=== PATIENT | male | born 1945 | race Caucasian/White ===

== ENCOUNTER 2017-08-02 07:26 | Inpatient (IN) | payer MEDICARE, OTHER ==
[~2017-08-02] VITALS: Ht 172.7 cm; Wt 69.3 kg
[2017-08-02] MEDS ORDERED: SAW450CA2 PO (08:01)
[2017-08-02] MEDS ORDERED: rhodiola PO (08:01)
[2017-08-02] MEDS ORDERED: ASPI1TAB57 PO (08:01)
[2017-08-02] MEDS ORDERED: METO25TA3 PO (08:01)
[2017-08-02] MEDS ORDERED: VITA500T83 PO (08:01)
[2017-08-02] MEDS ORDERED: ERGO2000 PO (08:01)
[2017-08-02] MEDS ORDERED: VITATAB11 PO (08:01)
[2017-08-02] MEDS ORDERED: CHOLTAB5 PO (08:01)
[2017-08-02] MEDS ORDERED: CELE200C PO (08:01)
[2017-08-02] MEDS ORDERED: CRANCAP2 PO (08:01)
[2017-08-02] MEDS ORDERED: RED1CAP4 PO (08:01)
[2017-08-02] MEDS ORDERED: GARL100T PO (08:01)
[2017-08-02] MEDS ORDERED: HYDR-3516 PO (08:01)
[2017-08-02] MEDS ORDERED: ceFAZolin 2 GM PREMIX 50 ML IV SCH (08:15)
[2017-08-02] MEDS ORDERED: SODIUM CHLORID 0.9% 500 ML IV PRN (08:15)
[2017-08-02] MEDS ORDERED: VANCOMYCIN 1000 MG/NS 250 ML (for <70 kg) IV SCH ×2 (08:15)
[2017-08-02] MEDS ORDERED: CHLORHEXIDINE GLUCONATE 2 % 1 PACK (2 CLOTHS) TOPICAL PRN (08:15)
[2017-08-02] MEDS ORDERED: LACTATED RINGER'S 1000 ML IV PRN (08:15)
[2017-08-02] MEDS ORDERED: METOPROLOL TARTRATE 25 MG TAB PO PRN (08:15)
[2017-08-02] MEDS ORDERED: POVIDONE IODINE 7.5% SCRUB 118 ML BOTTLE TOPICAL SCH (08:15)
[2017-08-02] MEDS ORDERED: POVIDONE IODINE 5% (ANTISEPSIS KIT) 4 APPLICATIONS EACH NARE PRN (08:15)
[2017-08-02] MEDS ORDERED: GENTAMICIN SULFATE 80 MG/2 ML VIAL ONE (08:39)
[2017-08-02] MEDS ORDERED: TRANEXAMIC ACID IV SCH (10:00)
[2017-08-02] MEDS ORDERED: EXPAREL PERI-ARTICULAR INJECTION (TOTAL VOL. 60 ML) P-ARTICULR SCH ×2 (10:00)
[2017-08-02] MEDS ORDERED: SODIUM CHLORIDE 0.9% IV SCH (10:00)
--- NOTE | 2017-08-02 11:12 | PD.OP ---
cc: Wilfrid Flores MD Operative Report Date of Surgery: Aug 02, 2017 Preoperative Diagnosis: Impending pathologic fracture left proximal femur/hip. 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 Surgeon: Wilfrid Flores Quality Systems Manager(s): BEBETO Garza Operation and Findings: EBL: 150 cc INDICATION: Patient is a 71-year-old white male with progressive left hip pain. Initially x-rays were relatively unremarkable but an MRI scan showed evidence of an aggressive posterior peritrochanteric lesion with some evidence of destabilization of the proximal femur. A PET CT scan is consistent with diffuse metastatic disease. The primary at this time is unknown but is in the workup for reevaluation. He's having a prophylactic intramedullary linda to prevent a pathologic fracture of the left femur NOTE: Tegan Garza PA-C was present for the entire surgical procedure as my surgeon assistant. In my medical opinion her skill and care was necessary for proper management of this patient PROCEDURE: The patient was brought to the operating room and anesthetized in the supine position. He was placed on the fracture table with the left leg held extended. The opposite leg was in the well leg desai. The hip and leg was held anatomically. The hip and leg was scrubbed with alcohol followed by Hibiclens followed by ChloraPrep. A timeout was done and antibiotics were given within 1 hour time window. A longitudinal incision was made over the lateral aspect of the proximal femur. Dissection continued down to the top of the greater trochanter. A cannulated awl was placed down through the top of the greater trochanter followed by placement of the guidepin along the shaft of the femur. This was reamed distally to 1 mm greater than the linda size and proximally to 16 mm. A separate incision was made laterally followed by placement of guidepin to the proper position of the femoral head. This is reamed and tapped in the proper length was placed up into the proper location. A single transverse screw was placed distally through the linda. Intraoperative x-rays were obtained. Alignment was satisfactory. No complication was noted. The wound was irrigated copiously. Hemostasis was controlled. The fascia was closed with interrupted Vicryl suture, subcutaneous tissue 2-0 Vicryl suture, skin with running intradermal 3-0 Vicryl followed by Steri-Strips and benzoin. A sterile dressing was applied The patient was awakened and taken to the recovery room in satisfactory condition. COMPANY: [employer]. Extended trochanteric nail, 400 mm, 11 mm, 125 proximal FINDINGS: There was no evidence of a fracture preoperatively or postoperatively. The stabilization was felt to be very good. Reamings were sent for analysis to pathology for further direction. There was no complication was appreciated. Wilfrid Flores MD Aug 02, 2017 11:12
[2017-08-02] MEDS ORDERED: ACETAMINOPHEN/HYDROcodone 325 MG/7.5 MG TAB PO PRN (11:15)
[2017-08-02] MEDS ORDERED: MISCELLANEOUS PHARMACY INFORMATION XX ONE (11:15)
[2017-08-02] MEDS ORDERED: MISCELLANEOUS NURSING INFORMATION XX PRN (11:15)
[2017-08-02] MEDS ORDERED: Post-op Orders (for Pharmacy) MISC XX ONE (11:15)
[2017-08-02] MEDS ORDERED: ONDANSETRON HCL 4 MG/2 ML VIAL IVP PRN (11:15)
[2017-08-02] MEDS ORDERED: MORPHINE SULFATE 8 MG/ML INJ IM PRN (11:15)
[2017-08-02] MEDS ORDERED: TEMAZEPAM 15 MG CAP PO PRN (11:15)
[2017-08-02] MEDS ORDERED: ALUMINUM/MAGNESIUM/SIMETH 30 ML CUP PO PRN (11:15)
[2017-08-02] MEDS ORDERED: SODIUM CHLORIDE 0.9% FLUSH 5 ML FLUSH IVF PRN (11:15)
[2017-08-02] MEDS ORDERED: HYDR-3580 PO (11:19)
[2017-08-02] MEDS ORDERED: DO NOT ADM ANY ANTICOAGULANT DRUGS PRN (11:29)
[2017-08-02] MEDS ORDERED: ONDANSETRON HCL 4 MG/2 ML VIAL IV PUSH ONE (12:00)
[2017-08-02] MEDS ORDERED: DEXAMETHASONE SOD PHOS 4 MG/ML VIAL IV ONE (12:00)
[2017-08-02] MEDS ORDERED: LACTATED RINGER'S 1000 ML INJ 1,000 ML IV ONE (12:00)
[2017-08-02] MEDS ORDERED: MIDAZOLAM HCL 2 MG/2 ML VIAL IV ONE (12:00)
[2017-08-02] MEDS ORDERED: PROPOFOL 200 MG/20 ML AMP IV ONE (12:00)
[2017-08-02] MEDS ORDERED: ePHEDrine/NS 25 MG/5 ML SYR IV ONE (12:00)
[2017-08-02] MEDS ORDERED: PHENYLEPH/NS 1000 MCG/10 ML SYR IV ONE (12:00)
[2017-08-02] MEDS: LACTATED RINGER'S 1000 ML INJ 1,000 ML IV SCH (12:00)
[2017-08-02] MEDS ORDERED: ROCURONIUM INJ 50 MG/5 ML SYRINGE IV PUSH ONE (12:00)
[2017-08-02] MEDS ORDERED: LIDOCAINE HCL 1% PF 5 ML SYRINGE OTHER ONE (12:00)
[2017-08-02] MEDS ORDERED: GLYCOPYRROLATE 1 MG/5 ML SYRINGE IV PUSH ONE (12:00)
[2017-08-02] MEDS ORDERED: NEOSTIGMINE 3 MG/3 ML SYR IV ONE (12:00)
[2017-08-02] MEDS ORDERED: *MEPERIDINE 25 MG INJ VIAL PERIprocedural Use ONLY ONE (12:03)
--- NOTE | 2017-08-02 13:14 | RADRPT ---
EXAM DATE/TIME: 08/02/2017 10:39 [facility] COMPARISON: No previous studies available for comparison. INDICATIONS : Prophylactic placement of troch nail left femur. MEDICAL HISTORY : None. SURGICAL HISTORY : None. ENCOUNTER: Initial ACUITY: 1 day PAIN SCORE: Non-responsive. LOCATION: Left Femur. FINDINGS: Hardware is noted within the left femur status post ORIF. No acute fracture or dislocation is noted. CONCLUSION: 1. Hardware is in good position within the left femur status post ORIF. 2. No acute fracture or dislocation. Maxi Alvarez MD on August 02, 2017 at 13:10 Board Certified Radiologist. This report was verified electronically.
[2017-08-02 16:00] VITALS: BP 124/59; PULSE 65; RESP 17; TEMP 96.9; O2SAT 98
--- NOTE | 2017-08-02 16:07 | EKG ---
Date Performed: 08/02/2017 Time Performed: 08:19:29 PTAGE: 71 years EKG: Sinus rhythm WITH OCCASIONAL VENTRICULAR PREMATURE COMPLEXES LEFT VENTRICULAR HYPERTROPHY AND ST-T CHANGE ABNORMA L ECG NO PREVIOUS TRACING DOCTOR: Jerilyn Melendez Interpretating Date/Time 08/02/2017 16:04:57
[2017-08-02 17:38] VITALS: O2SAT 96
[2017-08-02] MEDS: ACETAMINOPHEN/HYDROcodone 325 MG/7.5 MG TAB PO PRN ×2 (18:20→22:24)
[2017-08-02 20:00] VITALS: BP 119/56; PULSE 72; RESP 17; TEMP 97.7; O2SAT 98
[2017-08-02] MEDS: SODIUM CHLORIDE 0.9% FLUSH 5 ML FLUSH IVF SCH (21:00)
[2017-08-02] MEDS: MAGNESIUM HYDROXIDE SUSP 30 ML CUP PO SCH (21:00)
[2017-08-02] MEDS ORDERED: SENNOSIDES 8.6 MG TAB PO SCH (21:00)
[2017-08-02] MEDS ORDERED: ENOXAPARIN SODIUM 30 MG/0.3 ML SYRINGE SQ SCH (23:30)
[2017-08-03] VITALS: BP 119/62; PULSE 60; RESP 16; TEMP 96.1; O2SAT 96
[2017-08-03] MEDS: LACTATED RINGER'S 1000 ML INJ 1,000 ML IV SCH ×2 (00:04→12:05)
[2017-08-03] MEDS: ACETAMINOPHEN/HYDROcodone 325 MG/7.5 MG TAB PO PRN ×3 (02:55→12:42)
[2017-08-03 04:00] VITALS: BP 105/62; PULSE 66; RESP 17; TEMP 97.6; O2SAT 99
[2017-08-03 07:02] LABS: HEMATOCRIT 31.6 % (39.0-51.0); REVIEW FLAG FINAL
[2017-08-03 08:00] VITALS: BP 138/70; PULSE 71; RESP 18; TEMP 96.2; O2SAT 100
[2017-08-03] MEDS ORDERED: WALKER WHEELS/F1 MIS (08:07)
[2017-08-03] MEDS ORDERED: ADJUSTABLE COMM1 MIS (08:08)
--- NOTE | 2017-08-03 08:08 | HHI.DCPOC ---
Discharge Care Plan Diagnosis: (1) Lytic bone lesion of left femur Your Health Problems Are: Incision/Drains Inflammation Swelling Goals to Promote Your Health * To prevent worsening of your condition and complications * To maintain your health at the optimal level Directions to Meet Your Goals Take your medications as prescribed Follow your dietary instruction Follow activity as directed Keep your appointments as scheduled Take your immunizations and boosters as scheduled If your symptoms worsen call your PCP, if no PCP go to Urgent Care Center or Emergency Room Smoking is Dangerous to Your Health. Avoid second hand smoke Call the 24-hour hour crisis hotline for domestic abuse at Shilpa Webster Aug 03, 2017 08:08
--- NOTE | 2017-08-03 08:11 | HHI.FF ---
Face to Face Verification Diagnosis: (1) Lytic bone lesion of left femur Physical Therapy Gait training, Safety evaluation, Transfer training, bed to chair Hip: Hip fracture, Other, Protocol: Left, Progress to weight bearing Left LE Weight Bearing: WB as tolerated Additional Instructions PT 3 days/wk for one week. Progress to WBAT left LE. ROM allowed. Walker or cane with ambulation. Nursing RN Days per Week: 3 x Week(s): 1 Nursing: Lovenox teaching Dressing Changes: Do not change dressing Additional Instructions Lovenox teaching, injection QD x 25 days. Vitals assessment. Dressing assessment - do not change unless saturated. Ok to shower pod#5 if kept sealed and dry. I have seen patient Pj Calderon on 08/03/17. My clinical findings support the need for the requested home health care services because: Limited ability to care for self High risk of falls I certify that my clinical findings support that this patient is homebound because: Post-op weakness Unsteady gait/balance Shilpa Webster Aug 03, 2017 08:11
--- NOTE | 2017-08-03 08:13 | HHI.DS ---
Discharge Summary Admission Date Aug 02, 2017 at 11:07 Discharge Date: Aug 03, 2017 Admitting Diagnosis see below Diagnosis: (1) Lytic bone lesion of left femur Diagnosis: Principal ICD Codes: M89.8X5 - Other specified disorders of bone, thigh Procedures Prophylactic IM linda left femur for lytic lesion left proximal femur, bone biopsy. Brief History This is a 71 year old male patient... tripped over sprinkler increased pain... xray... PT no help. MRI of spine and left hip... lesion seen proximal, suspicious for metastatic lesion. Referred to Dr. Dc, oncology. Due to nature and location, recommended prophylactic linda. CBC/BMP: 08/03/17 0549 Significant Findings Laboratory Tests Test 08/03/17 05:49 Hemoglobin 10.4 GM/DL (13.0-17.0) Hematocrit 31.6 % (39.0-51.0) Hospital Course d/c home w [facility] pod#1. WBAT LLE. Hold dressing changes. Lovenox 30mg for 25 days. Pt Condition on Discharge: Stable Discharge Disposition: Discharge Home Discharge Instructions Diet Instructions: As Tolerated, No Restrictions, High Fiber Diet Activities You Can Perform: Weight Bearing as David Activities to Avoid: Strenuous Activity Additional Activity Instruc.: Progressive WBAT LLE. New Medications: Adjustable Commode 3-in-1 (Adjustable Commode 3-in-1) 1 Mis Mis EA .ROUTE DIRECTED, #1 Walker with Front Wheels (Walker with Front Wheels) 1 Mis Mis EA .ROUTE DIRECTED, #1 0 Refills Hydrocodone/Acetaminophen (Hydrocodone-Acetamin 7.5-325) 7.5 Mg-325 Mg Tablet 1 TAB PO Q4H PRN for PAIN, #40 TAB Continued Medications: Ascorbic Acid ER (Vitamin C ER) 500 Mg [place] 1000 MG PO for Nutritional Supplement, TAB [address] (Aspirin 81) 81 Mg Tabdr 81 MG PO DAILY, TAB 0 Refills B-Complex Vitamins (Vitamin B Complex) 1 Tab 1 TAB PO DAILY Celecoxib (Celebrex) 200 Mg Cap 200 MG PO DAILY for Pain Management, CAP 0 Refills Ergocalciferol (Vitamin D2) 2,000 Unit Tab 2000 UNITS PO DAILY for Nutritional Supplement, TAB 0 Refills Garlic (Garlic) 100 Mg Tablet 1 TAB PO DAILY Hydrocodone-Acetaminophen (Hydrocodone-Acetaminophen) 5-325 mg Tab 1 TAB PO Q4H PRN for PAIN, TAB 0 Refills Metoprolol Tartrate (Metoprolol Tartrate) 25 Mg Tab 25 MG PO DAILY, TAB 0 Refills Plant Sterols and Stanols (Cholestoff) 450 Mg Tab 2 TAB PO DAILY Red Yeast Rice Extract (Red Yeast Rice) 600 Mg Cap 1 CAP PO DAILY Saw [place] (Serenoa Repens) (Saw [place] (Serenoa Repens)) 450 Mg Cap 450 MG PO BID, CAP 0 Refills Vitamins C & E (Cranberry Urinary Comfort) 1 Cap 1 CAP PO DAILY for Urinary Symptom Managemen, CAP 0 Refills [rhodiola] () 1 TAB PO DAILY Shilpa Webster Aug 03, 2017 08:13
--- NOTE | 2017-08-03 08:16 | PD.ORT.PN ---
Subjective Subjective Remarks Doing well. His pain is controlled if he takes the pain pills. No new radiating leg pain. He states his hip aches but is 'ok'. He has questions about surgery and discharge. He would like to go home today. He denies any new CP or SOB. Objective Vitals Vital Signs Date Time Temp Pulse Resp B/P (MAP) Pulse Ox O2 Delivery O2 Flow Rate FiO2 08/03/17 04:00 97.6 66 17 105/62 (76) 99 08/03/17 00:00 96.1 60 16 119/62 (81) 96 08/02/17 20:00 97.7 72 17 119/56 (77) 98 08/02/17 17:38 96 Nasal Cannula 1.00 08/02/17 16:00 96.9 65 17 124/59 (80) 98 08/02/17 14:00 98.1 75 16 128/59 (82) 96 Nasal Cannula 2 08/02/17 13:30 70 16 124/58 (80) 95 Nasal Cannula 2 08/02/17 13:00 97.5 68 16 123/60 (81) 95 Nasal Cannula 2 08/02/17 12:45 65 16 127/63 (84) 100 Nasal Cannula 3 08/02/17 12:30 66 15 130/64 (86) 99 Nasal Cannula 3 08/02/17 12:15 96.5 68 15 128/65 (86) 98 Nasal Cannula 3 08/02/17 12:00 69 15 134/63 (86) 97 Nasal Cannula 3 08/02/17 11:45 95.4 70 15 142/68 (92) 96 Nasal Cannula 3 08/02/17 11:33 73 16 131/66 (87) 100 Nasal Cannula 4 I/O 08/02/17 08/02/17 08/02/17 08/03/17 08/03/17 08/03/17 07:00 15:00 23:00 07:00 15:00 23:00 Intake Total 1960 ml 550 ml 480 ml Output Total 200 ml 300 ml 550 ml Balance 1760 ml 250 ml -70 ml Intake Oral 550 ml 480 ml IV Total 160 ml Other 1800 ml Output Urine Total 100 ml 300 ml 550 ml Estimated Blood Loss 100 ml Result Diagram: 08/03/17 0549 Procedures Prophylactic IM linda left femur for lytic lesion left proximal femur, bone biopsy. Objective Remarks Sitting up in bed NAD VSS LLE Dressings c/d/i, no drainage, mild swelling, no ecchymosis or erythema +motor at distal, +sens, +nvi Neg homans, calf supple bilaterally Assessment & Plan Ortho Post Op Day #: 1 Problem List: (1) Lytic bone lesion of left femur ICD Codes: M89.8X5 - Other specified disorders of bone, thigh Assessment and Plan pod#1 s/p Prophylactic IM linda left femur for proximal lytic lesion, bone biopsy. Ortho stable. Pain controlled. Continue with PO pain meds Ok to d/c home w [facility] today after PT. PT - Progressive WBAT LLE. Walker as needed. Lovenox 30mg sc for 25 days. Hold dressing changes unless saturated. F/U in 2 weeks as scheduled. Following with Dr. Dc, oncology. Having PET/CT scan. DME and F2F written. Shilpa Webster Aug 03, 2017 08:16
[2017-08-03] MEDS ORDERED: ENOX30P SQ (08:18)
[2017-08-03] MEDS: MAGNESIUM HYDROXIDE SUSP 30 ML CUP PO SCH (08:41)
[2017-08-03] MEDS: SODIUM CHLORIDE 0.9% FLUSH 5 ML FLUSH IVF SCH (08:44)
[2017-08-03] MEDS ORDERED: METOPROLOL TARTRATE 25 MG TAB PO SCH (09:00)
[2017-08-03 10:09] VITALS: O2SAT 99
[2017-08-03 12:00] VITALS: BP 143/63; PULSE 54; RESP 18; TEMP 96.1; O2SAT 100
--- NOTE | 2017-08-03 13:55 | OTSOAPIP ---
TIME SESSION COMPLETED: 1351 TREATMENT TIME: 5 MINS. CHART REVIEWED. RECEIVED OCCUPATIONAL THERAPY ORDERS THIS DATE. ATTEMPTED TO COMPLETE EVALUATION, HOWEVER UPON ARRIVAL PATIENT IS FULLY DRESSED IN STREET CLOTHES AND PREPARING TO DISCHARGE. PATIENT AND SPOUSE PRESENT AND WERE EDUCATED ON ROLE OF OCCUPATIONAL THERAPY. PATIENT AND SPOUSE BOTH POLITELY DECLINE EVALUATION REPORTING THEY WILL HAVE PLENTY OF ASSISTANCE AT HOME, THEREFORE OCCUPATIONAL THERAPY WILL SIGN OFF. INTERDISCIPLINARY COMMUNICATION: REVIEWED ELECTRONIC MEDICAL RECORD Therapist: Ibis Kaba OTR/Colby Signature on file
== END 2017-08-03 14:41 | disposition home or self-care (01) | DRG 479 ==
LOC: HSDC 07:26 → EDSTATUS 10:00 → HSDI 11:07 → N06B 14:50
PROVIDERS: ADMIT Orthopaedic Surgery Orthopaedic Surgery of the Spine; ATTEND Orthopaedic Surgery Orthopaedic Surgery of the Spine
PROC: 0QH706Z Insertion of Intramedullary Internal Fixation Device into Left Upper Femur, Open Approach (ICD-10-PCS; 2017-08-02)
PROC: 0QB70ZX Excision of Left Upper Femur, Open Approach, Diagnostic (ICD-10-PCS; principal; 2017-08-02 09:25)
DX: C79.51 Secondary malignant neoplasm of bone (principal); C80.1 Malignant (primary) neoplasm, unspecified; I34.1 Nonrheumatic mitral (valve) prolapse; Z87.891 Personal history of nicotine dependence
CPT/HCPCS: 36415; 73552; 76000; 85014; 85018; 86850; 86900; 86901; 86920; 88305; 88307; 88311; 88341; 88342; 93005; 94150; C1713; C9290; J0690; J1100; J1580; J1650; J2175; J2250; J2370; J2405; J2710; J3010; J3370; J7050; J7120

== ENCOUNTER → 2017-10-15 | Day surgery (SDC) | payer MEDICARE, OTHER ==
[~2017-10-15] MED LIST: ADJUSTABLE COMM1 MIS; ASPI1TAB57 PO; CELE200C PO; CHOLTAB5 PO; CRANCAP2 PO; ENOX30P SQ; ERGO2000 PO; GARL100T PO; HYDR-3516 PO; HYDR-3580 PO; METO25TA3 PO; PROPOFOL 200 MG/20 ML AMP IV ONE; RED1CAP4 PO; SAW450CA2 PO; VITA500T83 PO; VITATAB11 PO; WALKER WHEELS/F1 MIS; rhodiola PO
== END | disposition home or self-care (01) ==
LOC: ESDC 10:54
PROVIDERS: ATTEND Internal Medicine Gastroenterology
DX: R13.10 Dysphagia, unspecified (principal); K20.9 Esophagitis, unspecified; K44.9 Diaphragmatic hernia without obstruction or gangrene; K29.70 Gastritis, unspecified, without bleeding; K22.2 Esophageal obstruction
CPT/HCPCS: 00731; 43239; 43248; 88305; J3010